=== PATIENT | male | born 1985 | race Caucasian/White ===

== ENCOUNTER 2018-07-23 08:35 | Day surgery (SDC) | payer OTHER ==
[~2018-07-23 08:35] MED LIST: Lactated Ringers 1,000 ML IV SCH; Sodium Chloride 0.9% 1,000 ML IV SCH
--- NOTE | 2018-07-23 09:04 | PCM.PREANE ---
Preanesthetic Assessment - Anesthesia/Transfusion/Family Hx Anesthesia History: Prior Anesthesia Without Reaction Family History of Anesthesia Reaction: No Transfusion History: No Prior Transfusion(s) Intubation History: Unknown - Review of Systems General: No Symptoms Pulmonary: No Symptoms Cardiovascular: No Symptoms Gastrointestinal: No Symptoms Neurological: No Symptoms Other: Reports: None - Physical Assessment Height: 1.96 m Weight: 145.15 kg ASA Class: 3 Mental Status: Alert & Oriented x3 Airway Class: Mallampati = 3 Dentition: Reports: Normal Dentition, [place](s) (back side) Thyro-Mental Finger Breadths: 3 Mouth Opening Finger Breadths: 2 ROM/Head Extension: Full Lungs: Clear to Auscultation, Normal Respiratory Effort Cardiovascular: Regular Rate, Regular Rhythm - Allergies Allergies/Adverse Reactions: Allergies Allergy/AdvReac Type Severity Reaction Status Date / Time No Known Allergies Allergy Verified 07/18/18 07:58 - Blood Blood Available: No - Anesthesia Plan Pre-Op Medication Ordered: None - Acknowledgements Anesthesia Type Planned: General Anesthesia Pt an Appropriate Candidate for the Planned Anesthesia: Yes Alternatives and Risks of Anesthesia Discussed w Pt/Guardian: Yes Pt/Guardian Understands and Agrees with Anesthesia Plan: Yes PreAnesthesia Questionnaire Other HEENT History: TMJ symptoms (not diagnosed), wears glasses Cardiovascular History: Reports: Hypertension Other Cardiovascular History: low BP on dialysis days, states does not always take his blood pressure pills on non dialysis days due to low BP Gastrointestinal History: Reports: Irritable Bowel Syndrome, Other (See Below) Other Gastrointestinal History: occasional heartburn Genitourinary History: Reports: Renal Disease Other Genitourinary History: 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 subclavian dialysis cath. placement - SUBSTANCE USE Smoking Status *Q: Never Smoker Recreational Drug Use History: No - HOME MEDS Home Medications: Home Meds Acetaminophen [Tylenol Extra Strength] 1 tab PO ASDIRECTED PRN 07/18/18 [History ] Allopurinol [Zyloprim] 2 tab PO DAILY 07/18/18 [History] Carvedilol 2 tab PO ASDIRECTED 07/18/18 [History] Colchicine [Colcrys] 1 tab PO ASDIRECTED PRN 07/18/18 [History] Sevelamer Carbonate 4 tab PO TID 07/18/18 [History] amLODIPine Besylate [Amlodipine Besylate] 5 mg PO ASDIRECTED 07/18/18 [History] - CURRENT (IN HOUSE) MEDS Current Meds: Current Medications Lactated Ringer's (Ringers, Lactated) 1,000 mls @ 125 mls/hr IV ASDIRECTED [place]ARRIS Sodium Chloride (Normal Saline) 1,000 mls @ 75 mls/hr IV ASDIRECTED HARRIS
[2018-07-23] MEDS ORDERED: Bupivacaine 0.5% 10 ML SDV ONE (09:51)
[2018-07-23] MEDS ORDERED: Lidocaine 1% 20 ML MDV ONE (09:51)
[2018-07-23] MEDS ORDERED: Midazolam 1 MG/ML 2 ML SDV ONE (10:05)
[2018-07-23] MEDS ORDERED: fentaNYL 100 MCG/2 ML SDV ONE (10:06)
[2018-07-23] MEDS ORDERED: Propofol 200 MG/20 ML SDV ONE ×2 (10:07→10:09)
[2018-07-23] MEDS ORDERED: Lactated Ringers 1,000 ML IV SCH (10:45)
[2018-07-23] MEDS ORDERED: Acetaminophen/HYDROcodone 325-10 MG Tab PO PRN (10:45)
--- NOTE | 2018-07-23 10:47 | PCM.OPNOTE ---
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
--- NOTE | 2018-07-23 14:12 | OR ---
SURGEON: Addison Leonardo M.D. DATE OF PROCEDURE: 07/23/2018 OPERATION PERFORMED: Removal of [place] dialysis catheter. ANESTHESIA: Local MAC. ASA CLASSIFICATION: III. PREOPERATIVE DIAGNOSES: 1. IgA nephropathy with chronic renal failure and chronic renal dialysis. 2. Desire for temporary dialysis access catheter removal. POSTOPERATIVE DIAGNOSES: 1. IgA nephropathy with chronic renal failure and chronic renal dialysis. 2. Desire for temporary dialysis access catheter removal. ESTIMATED BLOOD LOSS: 5 mL. INTRAOPERATIVE FLUID REPLACEMENT: 750 mL of crystalloid. DESCRIPTION OF PROCEDURE: The patient was taken to the operating room and placed on the operating table in the supine position. Time-out was called for appropriate identification of the patient and procedure. Monitored anesthesia care was provided. The right chest was prepped with ChloraPrep solution. Sterile drapes were applied. Attention was placed on the dialysis catheter to identify the site of the cuff. The skin was then infiltrated with 1% Xylocaine and 0.5% Marcaine solution. The skin incision was made and deepened through the subcutaneous tissue using electrocautery for hemostasis. The cuff was then identified and circumferentially dissected free and mobilized. The catheter was then clamped and cut, and the catheter removed in two pieces. Pressure was held at the insertion site in the right internal jugular for 3 minutes that was timed. Once pressure was released, there was no bleeding. The wound was inspected for hemostasis and small bleeding sites were electrocoagulated. The incision was then closed in 2 layers approximating the subcutaneous tissue with 3-0 Vicryl and the skin with subcuticular 4-0 Monocryl. The incision was then Steri- Stripped and dressed with a sterile Tegaderm pad. Sponge, needle, and instrument counts were all correct. The patient was taken to recovery room in stable condition. VIVIAN / KAZ /[id number]
== END 2018-07-23 11:28 | disposition home or self-care (01) ==
LOC: MW.SDS 08:35
PROVIDERS: ATTEND Surgery
DX: Z49.01 Encounter for fitting and adjustment of extracorporeal dialysis catheter (principal); N02.8 Recurrent and persistent hematuria with other morphologic changes; N18.6 End stage renal disease; I10 Essential (primary) hypertension; M10.9 Gout, unspecified; K58.9 Irritable bowel syndrome, unspecified; E66.9 Obesity, unspecified; Z68.39 Body mass index [BMI] 39.0-39.9, adult; Z79.899 Other long term (current) drug therapy
CPT/HCPCS: 36589; J2250; J2704; J3010; J3490; J7040; J7120